=== PATIENT | female | born 1985 | race Caucasian/White ===

== ENCOUNTER → 2016-11-22 | Outpatient (REF) | payer OTHER | END | disposition home or self-care (01) | LOC: M LAB REF 16:29 | PROVIDERS: ATTEND Physician Assistant | DX: R30.0 Dysuria (principal) ==

== ENCOUNTER → 2017-03-13 | Outpatient (CLI) | payer OTHER | LOC: M LAB 09:25 | PROVIDERS: ATTEND Student in an Organized Health Care Education/Training Program | DX: E04.9 Nontoxic goiter, unspecified (principal) | CPT/HCPCS: 36415; 84439; 84443; G0463 ==

== ENCOUNTER 2017-05-23 12:25 | Day surgery (SDC) | payer OTHER ==
[~2017-05-23] VITALS: Ht 165.1 cm; Wt 54.4 kg
[2017-05-23] MEDS ORDERED: LR 1,000 ML IV SCH ×2 (12:30→16:00)
[2017-05-23 13:14] LABS: CONTROL LINE UCG INT CTR LINE PRESENT
[2017-05-23] MEDS ORDERED: dexameTHASONE 4 MG/ML 1ML VIAL (J1100) As Ordered ONE (13:43)
[2017-05-23] MEDS ORDERED: dexameTHASONE 4 MG/ML 1ML VIAL (J1100) IV ONE (13:45)
[2017-05-23] MEDS ORDERED: fentaNYL 100 MCG/2 ML INJECTION (J3010) As Ordered ONE ×2 (14:05→14:59)
[2017-05-23] MEDS ORDERED: MIDAZOLAM INJ 2 MG/2 ML VIAL (J2250) As Ordered ONE (14:05)
[2017-05-23] MEDS ORDERED: ONDANSETRON 4MG/2ML VIAL (J2405) As Ordered ONE (14:05)
[2017-05-23] MEDS ORDERED: LIDOCAINE 2% INJ 100 MG/5 ML SDV (FOR ANES.) As Ordered ONE (14:05)
[2017-05-23] MEDS ORDERED: PROPOFOL 200 MG/20 ML VIAL As Ordered ONE ×2 (14:05→15:00)
[2017-05-23] MEDS ORDERED: PERCOCET 5MG/325MG TAB As Ordered ONE (15:40)
[2017-05-23] MEDS ORDERED: PERCOCET 5MG/325MG TAB PO PRN (16:00)
[2017-05-23] MEDS ORDERED: fentaNYL 100 MCG/2 ML INJECTION (J3010) IV PRN (16:00)
[2017-05-23] MEDS ORDERED: ONDANSETRON 4MG/2ML VIAL (J2405) IV PRN (16:00)
[2017-05-23 16:40] VITALS: BP 130/70
--- NOTE | 2017-05-25 09:37 | RO ---
DATE OF PROCEDURE: 05/23/2017 PREPROCEDURE DIAGNOSIS: Chronic tonsillitis. POSTPROCEDURE DIAGNOSIS: Chronic tonsillitis. PROCEDURE: Tonsillectomy. SURGEON: Dr. Neeraj Brooks PHOTOGRAPHIC ENGINEER: ANESTHESIA: General. CLINICAL PREAMBLE: This 31-year-old presented to the office with history of chronic tonsillitis. Physical examination revealed cryptic tonsils. Management options including surgery listed above had been discussed. The patient understood and consented to the procedure. DESCRIPTION OF PROCEDURE: Patient was identified in preoperative holding and brought to the operating room in stable condition. In supine position on the operating table, patient received general anesthesia followed by orotracheal intubation without incident. Patient was prepped and draped in the usual fashion for the procedure. The Yulia-Aravind mouth gag was inserted and suspended. The right tonsil was medialized using curved Allis forceps. Mucosal incision was made over the superior pole of the right tonsil using the Coblator wand set at 7 for Coblation. The tonsillar capsule was identified, and dissection was carried out along this plane to excise the right tonsil. The left tonsil was then similarly dissected out. At the end of the procedure, both tonsil beds were free of bleeding. EBL was 20 cc. Sponge and instrument counts were correct. Patient was extubated and brought to the recovery room in stable condition. DARLINE
== END 2017-05-23 16:50 ==
LOC: M SDC 12:25
PROVIDERS: ATTEND Otolaryngology
DX: J35.01 Chronic tonsillitis (principal); J35.8 Other chronic diseases of tonsils and adenoids; F17.210 Nicotine dependence, cigarettes, uncomplicated; Z91.030 Bee allergy status
CPT/HCPCS: 42826; 84703; 88302; J1100; J2250; J2405; J3010